=== PATIENT | female | born 1965 | race Caucasian/White ===

== ENCOUNTER 2017-02-22 04:23 | Emergency (ER) | payer BC, MEDICARE ==
--- NOTE | ~2017-02-22 | CR72 ---
[facility] A Service of [facility] RADIOLOGY TEXT RESULTS PATIENT: DONAVON COREAS LOCATION: [facility] : 65 UNIT #: [id number] AGE: [address]: Martin ER Doctor SEX: F ORDER DR: [id number] [facility] [address] [place], [place] [address] [id number] MR#: [id number] Acc #: [id number] NAME: DONAVON COREAS : 1965 SEX: F STUDY DATE/TIME: 02/22/2017 5:01 UNIT: [facility] ROOM: STUDY DESCRIPTION: CR Chest Single View Portable Attending Physician: Er Doctor Martin Ordering Physician: Ed Doctor [id number] [facility] Primary Care Physician: Maurilio Shay M.D. MEDICAL IMAGING REPORT This report is preliminary unless electronic signature is present EXAM Portable chest INDICATIONS Chest pain tonight. PROCEDURE Frontal view chest COMPARISON 10/03/2013 FINDINGS Upper limits of normal heart size. No dense consolidation pleural fluid or pneumothorax. IMPRESSION No active process Dictated by... Bora Maldonado M.D. THIS IS AN ELECTRONICALLY VERIFIED REPORT Bora Maldonado M.D. at 02/22/2017 9:52 PM ZENY/marimar TD: 02/22/2017 13:48 JOB #: [id number] MEDICAL IMAGING REPORT Page 1 of 1 COPY
--- NOTE | ~2017-02-22 | EKG ---
PATIENT: DONAVON COREAS UNIT #: [id number] Ventricular Rate: 83 BPM Atrial Rate: 83 BPM P-R Interval: 144 ms QRS Duration: 84 ms Q-T Interval: 374 ms QTC Calculation(Bezet): 439 ms P [place]: 71 degrees Calculated R [place]: 19 degrees Calculated T [place]: 37 degrees Diagnosis Line: Normal sinus rhythm Diagnosis Line: Normal ECG Diagnosis Line: When compared with ECG of 29-OCT-2011 00:33, Diagnosis Line: No significant change was found Diagnosis Line: Confirmed by ISELA GALINDO MD ([id number]) on Diagnosis Line: 02/23/2017 8:28:22 AM INTERPRETING MD: JOSIE IRVING
[~2017-02-22 04:23] MED LIST: ALBUTEROL17 GM INH; ARTIFICIAL TEAR1 DRP; ARTIFICIAL TEAR1 DRP OS; CLINDAMYCIN HC300 MG PO; ENBREL25 MG/KIT; FLEXERIL10 MG PO; FOLIC ACID1 MG; HYDROCHLOROTHIA25 MG PO; HYDROCODON-ACE1 EAC5 PO; IBUPROFEN800 MG PO; IPRAT-ALBUT 0.5-3 ML INH; LEVOTHYROXINE25 MC1 PO; LIDODERM30 EA TOP; LISINOPRIL10 MG; LORTAB 7.51 TAB 7.5/; LOVASTATIN20 M2 PO; MULTIVITAMIN1 UDCAP; OXYCONTIN20 MG PO; PREDNISONE PO; PREDNISONE10 MG PO; SYNTHROID88 MCG; VALACYCLOVIR HCL1 GM MC; VALACYCLOVIR1000 MG PO; VICODIN 5/500 T1 TAB PO; VICODIN PO
[2017-02-22 05:21] LABS: BASOPHIL% 0.5 % (0-2.5); EOSINOPHIL# 0.1 X10e3 (0-0.7); EOSINOPHIL% 1.1 % (0.0-7.0); HEMATOCRIT 36.9 % (35.0-45.0); HEMOGLOBIN 12.1 gm/dL (12.0-16.0); LYMPHOCYTE# 2.2 X10e3 (1.0-3.5); LYMPHOCYTE% 24.5 % (17.0-45.0); MEAN CELL VOLUME 83.4 FL (83-96); MEAN CORPUSCULAR HEMOGLOBIN 27.3 PG (28-34); MEAN CORPUSCULAR HGB CONC 32.8 g/dL (30-36); MEAN PLATELET VOLUME 8.1 FL (6.5-11.5); MONOCYTE# 0.5 X10e3 (0-1.0); NEUTROPHIL% 67.9 % (40-75); PLATELET COUNT 346 X10e3 (140-420); RED BLOOD COUNT 4.43 X10e (3.90-5.30); RED CELL DISTRIBUTION WIDTH 14.1 % (11.0-15.5); WHITE BLOOD COUNT 8.9 X10e3 (4.0-10.5)
[2017-02-22 05:29] LABS: DIFF IND NO
[2017-02-22 05:48] LABS: ALBUMIN SERUM 3.6 g/dL (3.5-5.0); ALKALINE PHOSPHATASE 57 U/L (32-92); ALT (SGPT) 15 U/L (10-40); AST (SGOT) 18 U/L (10-42); BILIRUBIN, DIRECT <0.1 mg/dL (0.0-0.2); BILIRUBIN,INDIRECT 0.1 mg/dL (0.0-0.9); BILIRUBIN,TOTAL 0.2 mg/dL (0.2-2.0); BLOOD UREA NITROGEN 10 mg/dL (9-23); CALCIUM SERUM 9.4 mg/dL (8.4-10.2); CARBON DIOXIDE 29 mmol/L (22-31); CHLORIDE 100 mmol/L (100-111); GLOM FILT RATE Estimated 64.8 mL/min (>60); GLUCOSE FASTING 119 mg/dL (70-110); POTASSIUM 3.3 mmol/L (3.5-5.1); PROTEIN TOTAL SERUM 7.5 g/dL (6.0-8.3); SODIUM 138 mmol/L (135-145)
== END 2017-02-22 06:15 | disposition left against medical advice (07) ==
LOC: CED 04:23
DX: Z53.21 Procedure and treatment not carried out due to patient leaving prior to being seen by health care provider (principal)
CPT/HCPCS: 71010; 80048; 80076; 85025; 93005

== ENCOUNTER → 2017-03-08 | Outpatient (CLI) | payer BC, MEDICARE ==
--- NOTE | ~2017-03-08 | ST ---
Unit #: [id number] #: [id number] Patient: DONAVON COREAS [id number] [address] [address] [id number] O MR#: [id number] NAME: DONAVON COREAS : 1965 SEX: F STUDY DATE/TIME: 03/08/2017 UNIT: [facility] ROOM: STUDY DESCRIPTION: Lexiscan stress test Attending Physician: Maurilio Shay M.D. Referring Physician: Maurilio Shay M.D. Primary Care Physician: Maurilio Shay M.D. CARDIOLOGY REPORT PROCEDURE PERFORMED Lexiscan Cardiolite stress test. PROCEDURE Baseline EKG - Normal sinus rhythm with a rate of 67 beats per minute; otherwise, normal. Lexiscan was injected, immediately followed by Cardiolite. The patient had a complaint of chest pressure during the test that was resolved in the recovery phase. EKG during Lexiscan showed no ST-T wave abnormalities. No arrhythmias were seen. Maximum blood pressure response was 172/102 mmHg. At the end of recovery, blood pressure was 147/100 mmHg. Please correlate these results with nuclear images. Dictated by... Griffin Galindo A.P.R.N. for Nishant Ernandez/alyson TD: 03/09/2017 08:30 JOB #: [id number] CARDIOLOGY REPORT Page 1 of 1 X Griffin Galindo APRN CARDIOLOGY REPORT
--- NOTE | ~2017-03-08 | TH ---
Unit #: [id number] #: [id number] Patient: DONAVON COREAS [id number] [address] [address] [id number] O MR#: [id number] NAME: DONAVON COREAS : 1965 SEX: F STUDY DATE/TIME: 03/08/2017 UNIT: [facility] ROOM: STUDY DESCRIPTION: Lexiscan stress test - Nuclear Attending Physician: Maurilio Shay M.D. Referring Physician: Maurilio Shay M.D. Primary Care Physician: Maurilio Shay M.D. CARDIOLOGY REPORT PROCEDURE PERFORMED Lexiscan Cardiolite stress test - Nuclear portion. PROCEDURE Using technetium 99m-labeled Cardiolite, rest and stress SPECT images were obtained. Multiple SPECT images were obtained in various views, including horizontal and vertical long axis and short axis views of the left ventricle. Images were obtained by gated SPECT method. The patient was administered 12 mCi of Cardiolite at rest. The patient was administered 35.3 mCi of Cardiolite after Lexiscan infusion was completed. On the stress images, there is mildly decreased tracer uptake activity in the anteroapical wall. The rest images also show a small area of mildly decreased tracer uptake activity anteroapically. Comparing the rest and stress images, there is no obvious stress-induced ischemia noted. There is a small area of predominantly fixed defect seen anteroapically, most likely due to soft tissue artifact. The left ventricular ejection fraction is calculated to be 65%. There is no focal wall motion abnormality seen. CONCLUSION 1. No stress-induced ischemia noted. 2. There is a small area of predominantly fixed defect seen anteroapically, most likely due to soft tissue artifact. 3. The left ventricular ejection fraction is calculated to be 65%. 4. There is no focal wall motion abnormality seen. 5. Normal Lexiscan Cardiolite stress test. 6. Technically limited study due to the patient's body habitus. Clinical correlation is requested. Dictated by... Nishant Ernandez TD: 03/09/2017 08:12 JOB #: [id number] Unit #: [id number] #: [id number] Patient: DONAVON COREAS [facility] CARDIOLOGY REPORT Page 1 of 1 X Antoinette Doan MD <ELECTRONICALLY SIGNED> 04/28/17 1524 CARDIOLOGY REPORT
== END | disposition home or self-care (01) ==
LOC: CNUC 08:11
DX: R07.89 Other chest pain (principal); E78.00 Pure hypercholesterolemia, unspecified; E66.01 Morbid (severe) obesity due to excess calories; I10 Essential (primary) hypertension
CPT/HCPCS: 78452; 93017; A9500; J2785